=== PATIENT | female | born 1990 | race African-American/Black ===

== ENCOUNTER 2022-09-10 19:49 | Emergency (ER) | payer MEDICAID ==
[~2022-09-10] VITALS: Ht 162.6 cm; Wt 164.3 kg
[2022-09-10 20:20] VITALS: BP 116/71
[2022-09-10 21:19] LABS: CHLORIDE 110 mEq/L (98-107)
[2022-09-10 21:20] LABS: HEMATOCRIT. 32.1 % (36.0-48.0); HEMOGLOBIN. 9.6 g/dL (12.0-16.0); MEAN CORPUSCULAR HEMOGLOBIN 21.5 pg (28.0-32.0); MEAN CORPUSCULAR VOLUME 71.8 fL (81.0-99.0); MEAN PLATELET VOLUME 9.2 fl (7.4-10.4); PLATELET 292 x1000/uL (130-400); RED BLOOD CELL COUNT 4.47 mill/uL (4.2-5.4); RED CELL DISTRIBUTION WIDTH 24.7 % (11.6-14.6)
[2022-09-10 21:30] LABS: HCG SCREEN NEGATIVE
[2022-09-10 22:36] LABS: PLATELET ESTIMATE NORMAL
== END 2022-09-11 02:00 | disposition left against medical advice (07) ==
LOC: ER 19:49
DX: D64.9 Anemia, unspecified (principal); E87.6 Hypokalemia; R53.1 Weakness; R42 Dizziness and giddiness
CPT/HCPCS: 36415; 80053; 84703; 85025; 86850; 86900; 99283

== ENCOUNTER 2022-11-03 09:11 | Emergency (ER) | payer MEDICAID ==
[~2022-11-03] VITALS: Ht 167.6 cm; Wt 69.0 kg
[2022-11-03 09:25] VITALS: BP 115/69
[2022-11-03] MEDS ORDERED: ACETAMINOPHEN 325MG TABLET PO STA (11:03)
[2022-11-03 12:24] LABS: BASOPHILS % 0.8 % (0.0-2.0); EOSINOPHILS % 1.4 % (0.0-5.0); HEMOGLOBIN. 11.6 g/dL (12.0-16.0); LYMPHOCYTES % 18.1 % (20.0-50.0); MEAN CORPUSCULAR HEMOGLOBIN 23.2 pg (28.0-32.0); MEAN CORPUSCULAR VOLUME 74.2 fL (81.0-99.0); MEAN PLATELET VOLUME 8.8 fl (7.4-10.4); MONOCYTES % 5.9 % (2.0-8.0); NEUTROPHILS % 73.8 % (40.0-76.0); PLATELET 255 x1000/uL (130-400); RED BLOOD CELL COUNT 4.98 mill/uL (4.2-5.4); RED CELL DISTRIBUTION WIDTH 24.8 % (11.6-14.6)
[2022-11-03 12:30] LABS: PROTHROMBIN TIME 10.6 sec (9.6-11.0)
[2022-11-03 12:41] LABS: CHLORIDE 111 mEq/L (98-107)
[2022-11-03 13:12] LABS: PLATELET ESTIMATE NORMAL
[2022-11-03 13:32] LABS: CLARITY URINE CLEAR (CLEAR); COLOR URINE YELLOW (YELLOW); KETONES URINE NEGATIVE (NEGATIVE); LEUKOCYTE ESTERASE URINE NEGATIVE (NEGATIVE); NITRITE URINE NEGATIVE (NEGATIVE); OCCULT BLOOD URINE NEGATIVE (NEGATIVE); PROTEIN URINE NEGATIVE (NEGATIVE); SPECIFIC GRAVITY URINE 1.008 (1.005-1.030); UROBILINOGEN URINE 0.2 E.U./dL (0.2-1.0)
== END 2022-11-03 13:55 | disposition left against medical advice (07) ==
LOC: ER 10:30
DX: K62.5 Hemorrhage of anus and rectum (principal); D50.9 Iron deficiency anemia, unspecified; R25.1 Tremor, unspecified
CPT/HCPCS: 36415; 71045; 80053; 81003; 81025; 85025; 86850; 86900; 99284